=== PATIENT | female | born 1985 | race Caucasian/White ===

== ENCOUNTER 2024-11-13 01:38 | Emergency (ER) | payer SELFPAY ==
[~2024-11-13] VITALS: Ht 165.1 cm; Wt 68.0 kg
[2024-11-13 01:42] VITALS: TEMP 35.9; O2SAT 95
[2024-11-13 01:48] VITALS: BP 100/61; PULSE 103; RESP 25; O2SAT 98
[2024-11-13 02:39] LABS: BASOPHILS % 1.1 % (0.0-2.0); EOSINOPHILS % 1.0 % (0.0-5.0); HEMATOCRIT. 30.5 % (36.0-48.0); HEMOGLOBIN. 10.0 g/dL (12.0-16.0); LYMPHOCYTES % 43.0 % (20.0-50.0); MEAN PLATELET VOLUME 6.9 fl (7.4-10.4); MONOCYTES % 9.9 % (2.0-8.0); NEUTROPHILS % 45.0 % (40.0-76.0); PLATELET 217 x1000/uL (130-400); RED BLOOD CELL COUNT 3.41 mill/uL (4.2-5.4); RED CELL DISTRIBUTION WIDTH 17.6 % (11.6-14.6)
[2024-11-13 02:50] LABS: CREATININE 1.1 mg/dL (0.6-1.0); UREA NITROGEN BLOOD 21 mg/dL (9-23)
[2024-11-13 02:52] LABS: ASPARTATE AMINOTRANSFERASE 24 IU/L (<34); BILIRUBIN DIRECT < 0.1 mg/dL (<=3.0); BILIRUBIN TOTAL 0.2 mg/dL (0.1-1.0); PROTEIN TOTAL 7.1 g/dL (6.0-8.3)
[2024-11-13] MEDS: SODIUM CHLORIDE 0.9% 1,000 ML IV ONE (02:54)
[2024-11-13 02:55] LABS: HCG SCREEN NEGATIVE
[2024-11-13 03:10] LABS: ETHANOL BLOOD 507 mg/dL (<10)
== END 2024-11-13 07:12 | disposition left against medical advice (07) ==
LOC: ER 01:38
DX: G92.8 Other toxic encephalopathy (principal); F10.129 Alcohol abuse with intoxication, unspecified; Y90.8 Blood alcohol level of 240 mg/100 ml or more
CPT/HCPCS: 80076; 80048; 80320; 84703; 85025; 36415; 70450; 96360; 96361; 99284; J7030; G0480